=== PATIENT | male | born 1990 | race Two or more races ===

== ENCOUNTER 2022-06-27 11:39 | Inpatient (IN) | payer MEDICAID ==
[~2022-06-27] VITALS: Ht 185.4 cm; Wt 91.2 kg
[2022-06-27] MEDS ORDERED: SODIUM CHLORIDE 0.9% 1,000 ML IVB ONE (12:45)
[2022-06-27] MEDS ORDERED: MORPHINE SULFATE 4 MG/ML SYR/VIAL IV ONE (12:45)
[2022-06-27] MEDS ORDERED: VANCOMYCIN 1GM/250ML 250 ML IV ONE (12:45)
[2022-06-27] MEDS ORDERED: ONDANSETRON HCL 4 MG/2 ML VIAL IV ONE (12:45)
[2022-06-27] MEDS ORDERED: PIPERACILLIN-TAZOB 3.375GM 100 ML IV ONE (12:45)
[2022-06-27 13:21] LABS: Basophils # (auto) 0 10 ^3/uL (0-0.2); Basophils % (auto) 0.5 % (0.0-2.0); Eosinophils # (auto) 0.4 10 ^3/uL (0-0.8); Eosinophils % (auto) 4.9 % (0.0-7.0); Hematocrit 41.1 % (41.0-53.0); Hemoglobin 14.1 g/dL (13.5-17.5); Lymphocytes # (auto) 2.7 10 ^3/uL (0.4-5.4); Lymphocytes % (auto) 30.1 % (10.0-50.0); Mean Corpuscular Hemoglobin 28.9 pg (28.0-32.0); Mean Corpuscular Hgb Conc. 34.3 g/dL (32.0-36.0); Mean Corpuscular Volume 84.3 fL (80.0-100.0); Monocytes # (auto) 0.8 10 ^3/uL (0-1.3); Monocytes % (auto) 9.3 % (0.0-12.0); Neutrophils # (auto) 4.9 10 ^3/uL (1.6-8.6); Neutrophils % (auto) 55.2 % (37.0-80.0); Nucleated Red Blood Cells % 0.1 %; Red Blood Cells 4.88 10^6/uL (4.5-5.90); Red Cell Distribution Width 13.9 % (11.8-14.3); White Blood Cell 8.9 10^3/uL (4.4-10.8)
[2022-06-27 14:15] LABS: Albumin 3.5 g/dL (3.4-5.0); Calcium 8.8 mg/dL (8.5-10.1); Potassium 4.2 mmol/L (3.5-5.1)
[2022-06-27 14:18] LABS: BUN/Creatinine Ratio 10.8 (10.0-20.0); Bilirubin, Total 0.3 mg/dL (0.2-1.0); Total Protein 8.4 g/dL (6.4-8.2)
[2022-06-27] MEDS ORDERED: ACETAMINOPHEN 325 MG TAB PO PRN (16:45)
[2022-06-27] MEDS ORDERED: LACTATED RINGER'S 1,000 ML IV ONE (16:45)
[2022-06-27] MEDS ORDERED: ONDANSETRON HCL 4 MG/2 ML VIAL IV PRN (16:45)
[2022-06-27] MEDS ORDERED: DOCUSATE SOD 100 MG CAP PO PRN (16:45)
[2022-06-27] MEDS ORDERED: VANCOMYCIN PER PHARMACY 0 MG IV SCH (16:45)
[2022-06-27] MEDS: HYDROmorphone HCL 2 MG/ML VL/or syr IV PRN (17:00)
[2022-06-28] MEDS: PIPERACILLIN-TAZOB 3.375GM 100 ML IV SCH ×5 (02:09→20:23)
[2022-06-28] MEDS: VANCOMYCIN 1GM/250ML 250 ML IV SCH ×4 (02:10→23:54)
[2022-06-28] MEDS: SODIUM CHLOR 0.9% PF (SALINE LOCK) 10ML VIAL/SYR IV SCH ×4 (02:10→20:31)
[2022-06-28] MEDS: HYDROmorphone HCL 2 MG/ML VL/or syr IV PRN (02:12)
[2022-06-28 04:49] LABS: Basophils # (auto) 0 10 ^3/uL (0-0.2); Basophils % (auto) 0.5 % (0.0-2.0); Eosinophils # (auto) 0.6 10 ^3/uL (0-0.8); Eosinophils % (auto) 7.1 % (0.0-7.0); Hematocrit 39.6 % (41.0-53.0); Hemoglobin 13.5 g/dL (13.5-17.5); Lymphocytes % (auto) 24.7 % (10.0-50.0); Mean Corpuscular Hemoglobin 28.8 pg (28.0-32.0); Mean Corpuscular Volume 84.6 fL (80.0-100.0); Monocytes # (auto) 0.7 10 ^3/uL (0-1.3); Monocytes % (auto) 8.5 % (0.0-12.0); Neutrophils # (auto) 4.7 10 ^3/uL (1.6-8.6); Neutrophils % (auto) 59.2 % (37.0-80.0); Nucleated Red Blood Cells % 0.1 %; Red Blood Cells 4.69 10^6/uL (4.5-5.90); White Blood Cell 7.9 10^3/uL (4.4-10.8)
[2022-06-28 05:09] LABS: BUN/Creatinine Ratio 13.6 (10.0-20.0); Calcium 9.4 mg/dL (8.5-10.1); Potassium 3.6 mmol/L (3.5-5.1)
[2022-06-28] MEDS: HYDROcodone-ACET 5/325MG TAB PO PRN (13:38)
[2022-06-28 22:00] VITALS: BP 122/69
[2022-06-29] MEDS: HYDROcodone-ACET 5/325MG TAB PO PRN ×3 (00:02→16:49)
[2022-06-29] MEDS: PIPERACILLIN-TAZOB 3.375GM 100 ML IV SCH ×4 (02:50→20:10)
[2022-06-29 05:00] VITALS: BP 116/69
[2022-06-29 05:03] LABS: Basophils # (auto) 0 10 ^3/uL (0-0.2); Basophils % (auto) 0.5 % (0.0-2.0); Eosinophils # (auto) 0.4 10 ^3/uL (0-0.8); Eosinophils % (auto) 6.7 % (0.0-7.0); Hematocrit 42.3 % (41.0-53.0); Hemoglobin 14.5 g/dL (13.5-17.5); Lymphocytes # (auto) 2.3 10 ^3/uL (0.4-5.4); Lymphocytes % (auto) 36.3 % (10.0-50.0); Mean Corpuscular Hgb Conc. 34.3 g/dL (32.0-36.0); Mean Corpuscular Volume 84.7 fL (80.0-100.0); Monocytes # (auto) 0.7 10 ^3/uL (0-1.3); Monocytes % (auto) 10.4 % (0.0-12.0); Neutrophils % (auto) 46.1 % (37.0-80.0); Nucleated Red Blood Cells % 0.1 %; Red Cell Distribution Width 13.7 % (11.8-14.3); White Blood Cell 6.5 10^3/uL (4.4-10.8)
[2022-06-29 05:29] LABS: BUN/Creatinine Ratio 16.1 (10.0-20.0); Bilirubin, Total 0.3 mg/dL (0.2-1.0); Total Protein 7.6 g/dL (6.4-8.2)
[2022-06-29] MEDS: SODIUM CHLOR 0.9% PF (SALINE LOCK) 10ML VIAL/SYR IV SCH ×3 (06:00→20:10)
[2022-06-29] MEDS: VANCOMYCIN 1GM/250ML 250 ML IV SCH ×2 (06:32→16:44)
[2022-06-29 08:00] VITALS: BP 115/67
[2022-06-29 09:00] VITALS: BP 115/67
[2022-06-29 13:00] VITALS: BP 123/69
[2022-06-29 17:00] VITALS: BP 119/63
[2022-06-30] VITALS (7 sets, daily range): BP systolic 101–132; BP diastolic 51–78
[2022-06-30] MEDS: VANCOMYCIN 1GM/250ML 250 ML IV SCH ×3 (00:09→16:26)
[2022-06-30] MEDS: PIPERACILLIN-TAZOB 3.375GM 100 ML IV SCH ×2 (02:57→08:28)
[2022-06-30] MEDS: SODIUM CHLOR 0.9% PF (SALINE LOCK) 10ML VIAL/SYR IV SCH ×3 (06:26→21:30)
[2022-06-30 12:46] LABS: INR 0.98 (0.9-1.15); Partial Thromboplastin Time 29.5 sec (24.6-33.4)
[2022-06-30 13:53] LABS: Urine Bacteria NONE SEEN /hpf (None Seen); Urine Blood Negative /uL (Negative); Urine Specific Gravity 1.015 (1.001-1.035); Urine WBC 1 /hpf (0 - 3)
[2022-06-30 14:24] LABS: Alcohol, Urine < 3.0 mg/dL (0-10); Amphetamine Screen, Urine NEGATIVE (NEGATIVE); Barbiturate Scree,Urine NEGATIVE (NEGATIVE); Benzodiazephine Screen, Urine NEGATIVE (NEGATIVE); Cannabinoid Screen, Urine POSITIVE (NEGATIVE); Cocaine Screen, Urine NEGATIVE (NEGATIVE); Opiate Scree,Urine NEGATIVE (NEGATIVE)
[2022-06-30 14:34] LABS: Phencyclidine Screen, Urine NEGATIVE (NEGATIVE)
[2022-06-30] MEDS: CEFEPIME 1GM/ 50ML 50 ML IV SCH ×2 (16:26→21:25)
[2022-06-30] MEDS ORDERED: ERGOCALCIFEROL 50,000 UNIT(1.25MG) CAP PO SCH (17:45)
[2022-06-30] MEDS: HYDROCORTONE 1% TOPICAL CREAM 30 GM TUBE TOP SCH (21:30)
[2022-06-30] MEDS: KETOCONAZOLE 2 % TOPICAL CREAM 15GM TOP SCH (21:30)
[2022-07-01] MEDS: VANCOMYCIN 1GM/250ML 250 ML IV SCH ×2 (00:25→07:00)
[2022-07-01 05:00] VITALS: BP 111/66
[2022-07-01 05:53] LABS: Basophils # (auto) 0 10 ^3/uL (0-0.2); Basophils % (auto) 0.2 % (0.0-2.0); Eosinophils # (auto) 0.2 10 ^3/uL (0-0.8); Eosinophils % (auto) 1.7 % (0.0-7.0); Hematocrit 44.1 % (41.0-53.0); Hemoglobin 15.1 g/dL (13.5-17.5); Lymphocytes # (auto) 2.7 10 ^3/uL (0.4-5.4); Lymphocytes % (auto) 20.4 % (10.0-50.0); Mean Corpuscular Hgb Conc. 34.2 g/dL (32.0-36.0); Mean Corpuscular Volume 84.8 fL (80.0-100.0); Monocytes # (auto) 1.1 10 ^3/uL (0-1.3); Monocytes % (auto) 8.4 % (0.0-12.0); Neutrophils # (auto) 9.2 10 ^3/uL (1.6-8.6); Neutrophils % (auto) 69.3 % (37.0-80.0); Red Cell Distribution Width 14.1 % (11.8-14.3); White Blood Cell 13.3 10^3/uL (4.4-10.8)
[2022-07-01 06:06] LABS: BUN/Creatinine Ratio 20.5 (10.0-20.0); Calcium 9.9 mg/dL (8.5-10.1); Potassium 4.1 mmol/L (3.5-5.1)
[2022-07-01] MEDS: SODIUM CHLOR 0.9% PF (SALINE LOCK) 10ML VIAL/SYR IV SCH (06:23)
[2022-07-01] MEDS: CEFEPIME 1GM/ 50ML 50 ML IV SCH (06:30)
[2022-07-01 09:00] VITALS: BP 122/70
[2022-07-01] MEDS ORDERED: GADOTERATE MEG 10 MMOL/20ml INJ (0.5MMOL/ml) IV ONE (09:03)
[2022-07-01] MEDS: HYDROCORTONE 1% TOPICAL CREAM 30 GM TUBE TOP SCH (09:23)
[2022-07-01] MEDS: KETOCONAZOLE 2 % TOPICAL CREAM 15GM TOP SCH (09:24)
[2022-07-01] MEDS ORDERED: IBUPROFEN 400 MG TAB PO ONE (12:00)
== END 2022-07-01 13:20 | disposition left against medical advice (07) | DRG 344 ==
LOC: ER 11:39 → OVERFLOW 16:36 → CENTRAL 06-28 18:17
PROVIDERS: ADMIT Internal Medicine; ATTEND Internal Medicine
DX: M86.172 Other acute osteomyelitis, left ankle and foot (principal); E44.0 Moderate protein-calorie malnutrition; L03.116 Cellulitis of left lower limb; Z53.29 Procedure and treatment not carried out because of patient's decision for other reasons; Z83.3 Family history of diabetes mellitus; Z68.26 Body mass index [BMI] 26.0-26.9, adult
CPT/HCPCS: 36415; 73630; 73720; 80048; 80053; 80202; 80307; 81001; 82306; 82565; 83036; 83605; 84443; 85025; 85610; 85652; 85730; 86141; 87040; 87077; 87186; 87205; 96365; 96366; 96375; G0378; J2405; J2543

== ENCOUNTER 2022-12-12 08:54 | Emergency (ER) | payer MEDICAID ==
[~2022-12-12] VITALS: Ht 185.4 cm; Wt 125.0 kg
[2022-12-12 09:19] VITALS: BP 124/61; PULSE 97; TEMP 98.3
[2022-12-12] MEDS ORDERED: ALBUTEROL MEDNEB 2.5 mg/3ml NEB ONE (09:26)
[2022-12-12] MEDS ORDERED: IPRATROPIUM BROM 0.5 MG/2.5ML INH SOL NEB ONE (09:30)
[2022-12-12] MEDS ORDERED: ALBUTEROL SULF 2.5 MG/0.5ML(0.5%) NEB SOLN NEB ONE (09:30)
[2022-12-12 09:34] VITALS: RESP 16; O2SAT 96
[2022-12-12] MEDS ORDERED: PRED20TA2 PO (10:19)
[2022-12-12] MEDS ORDERED: CEPH500C PO (10:19)
== END 2022-12-12 10:32 | disposition home or self-care (01) ==
LOC: ER 08:54
DX: J20.9 Acute bronchitis, unspecified (principal)
CPT/HCPCS: 71046; 94640; 99283; J7644